=== PATIENT | female | born 1965 | race African-American/Black ===

== ENCOUNTER 2019-01-15 09:43 | Inpatient (IN) ==
--- NOTE | 2019-01-15 10:10 | EKG Report ---
Test Performed on : 01/15/2019 09:55:06 AM Test Reason : weakness Blood Pressure : / mmHG Vent. Rate : 095 BPM Atrial Rate : 095 BPM P-R Int : 158 ms QRS Dur : 084 ms QT Int : 352 ms P-R-T Axes : 041 -19 011 degrees QTc Int : 442 ms Normal sinus rhythm. Moderate voltage criteria for LVH, may be normal variant Borderline ECG When compared with ECG of 19-JUN-2017 11:55, Vent. rate has increased BY 40 BPM Unconfirmed Result
--- NOTE | 2019-01-15 10:19 | Diag Imaging Result Doc PS360 ---
EXAM: CT HEAD W/O CONTRAST HISTORY: bilateral weakness TECHNIQUE: CT head without contrast COMPARISON: None. FINDINGS: No parenchymal hemorrhage. No epidural or subdural hematoma. No subarachnoid hemorrhage. No mass identified on this noncontrasted exam. No hydrocephalus. No sinus opacification. IMPRESSION: No hemorrhage. Negative brain CT without contrast. This exam was performed using automated exposure control, adjustment of mA or kV according to patient size, and/or use of iterative reconstruction technique. Electronically signed by Yahir Alvarado 01/15/2019 10:16 AM
--- NOTE | 2019-01-15 10:29 | Diag Imaging Result Doc PS360 ---
EXAM: CHEST-PORTABLE HISTORY: weakness TECHNIQUE: Single view COMPARISON: 10/30/2015 FINDINGS: Poor inspiratory effort. The heart is not enlarged. The vessels are not distended. There are no infiltrates. No effusion identified. IMPRESSION: Negative exam. 'V Electronically signed by Yahir Alvarado 01/15/2019 10:26 AM
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
[2019-01-15 11:16] LABS: BASO# 0.01 X1000 (0.0-0.2); BASO% 0.1 % (0.0-0.8); EOS# 0.04 X1000 (0.0-0.7); EOS% 0.3 % (0.0-10.0); HEMATOCRIT 39.3 % (37.0-47.0); HEMOGLOBIN 13.8 g/dL (12.0-16.0); IMM GRAN# 0.01 X1000 (0.0-0.04); IMM GRAN% 0.1 % (0.0-0.5); LYMPH% 17.2 % (20.5-51.1); MCH 28.5 PG (27-31); MCHC 35.1 g/dL (33-37); MCV 81.2 FL (81-99); MONO# 0.99 X1000 (0.11-0.59); MONO% 7.7 % (1.7-9.3); MPV 9.2 FL (7.4-10.4); NEUT# 9.55 X1000 (1.4-6.5); NEUT% 74.6 % (42.2-75.2); PLT 348 X1000 (130-400); RBC 4.84 XMIL (4.2-5.4); RDW 12.8 % (11.5-14.5)
[2019-01-15 11:30] LABS: AGAP 13; ALBUMIN 4.5 g/dL (3.5-5.0); ALKALINE PHOSPHATASE 128 U/L (32-104); BUN 10 mg/dL (8-22); CHLORIDE 103 mmol/L (98-107); COSMO 278; CREATININE 0.6 mg/dL (0.5-0.9); ESTIMATED GFR > 60; GLUCOSE 98 mg/dL (70-104); GOT 24 U/L (10-30); GPT 20 U/L (10-36); POTASSIUM 4.3 mmol/L (3.5-5.1); SODIUM 140 mmol/L (136-145); TCO2 24 mmol/L (25-35); TOTAL PROTEIN 7.4 g/dL (6.3-8.3)
[2019-01-15 11:47] LABS: CK INDEX 1.1 (0.0-2.5); CK-MB 3.13 ng/mL (0.0-5.0)
[2019-01-15 12:37] LABS: BILIRUBIN URINE NEGATIVE (NEGATIVE); BLOOD URINE NEGATIVE (NEGATIVE); GLUCOSE URINE NEGATIVE (NEGATIVE); KETONE URINE TRACE mg/dL (NEGATIVE); LEUKOCYTES URINE 1+ (NEGATIVE); NITRITE URINE NEGATIVE (NEGATIVE); PROTEIN URINE NEGATIVE (NEGATIVE); SP GRAVITY URINE 1.005; UROBILINOGEN URINE 4 mg/dL
[2019-01-15 12:38] LABS: CLARITY CLEAR (CLEAR); COLOR YELLOW
[2019-01-15 12:42] LABS: URINE EPITHELIAL CELLS >10 /HPF (<10); URINE SOURCE CLEAN CATCH
[2019-01-15 12:53] LABS: UR AMPHETAMINES QUAL NONE DETECTED (NONE DETECT); UR BARBITUATES QUAL NONE DETECTED (NONE DETECT); UR BENZODIAZEPIN QUAL NONE DETECTED (NONE DETECT); UR CANNABINOIDS QUAL NONE DETECTED (NONE DETECT); UR COCAINE QUAL NONE DETECTED (NONE DETECT); UR METHADONE QUAL NONE DETECTED (NONE DETECT); UR METHAMPHETAMINE QUAL NONE DETECTED (NONE DETECT); UR OPIATES QUAL NONE DETECTED (NONE DETECT); UR OXYCODONE QUAL NONE DETECTED (NONE DETECT); UR PCP QUAL NONE DETECTED (NONE DETECT); UR PROPOXYPHENE QUAL NONE DETECTED (NONE DETECT); UR TCA QUAL NONE DETECTED (NONE DETECT)
[2019-01-15] MEDS ORDERED: ASPIRIN PO ONE (13:41)
[2019-01-15] MEDS ORDERED: TYLENOL PO PRN (14:25)
[2019-01-15] MEDS ORDERED: ZOFRAN IV PRN (14:25)
--- NOTE | 2019-01-15 15:29 | Diag Imaging Result Doc PS360 ---
EXAM: MRI BRAIN W/WO CONTRAST HISTORY: TIA vs CVA TECHNIQUE: MRI brain with and without contrast. Axial, sagittal, and coronal images obtained in multiple. These are followed the post contrasted axial and coronal images. COMPARISON: None. FINDINGS: No recent infarct. No significant microvascular ischemic changes. No mass or midline shift. No enhancing lesion on the post contrasted images. No hydrocephalus. No epidural or subdural fluid collection. Normal orbits. No sinus opacification. IMPRESSION: No recent infarct or microvascular ischemic changes Electronically signed by Yahir Alvarado 01/15/2019 3:26 PM
--- NOTE | 2019-01-15 15:58 | Extremity Venous Study ---
EXAM: Carotid Ultrasound HISTORY: TIA vs CVA TECHNIQUE: Carotid Doppler ultrasound COMPARISON: None. FINDINGS: Right: No occlusion or stenosis in the common carotid artery. The peak systolic velocity in the internal carotid artery is 59 cm/s. No stenosis. The ICA/CC ratio 0.72. Antegrade flow in the vertebral artery. Left: No occlusion or stenosis within the common carotid artery. There is a small amount of plaque in the bulb. Peak systolic velocity is 56 cm/s. The ICA/CC ratio 0.57. Antegrade flow in the vertebral artery. IMPRESSION: Mild stenosis in the left bulb of less than 40%. Electronically signed by Yahir Alvarado 01/15/2019 3:56 PM
--- NOTE | 2019-01-15 17:17 | HISTORY AND PHYSICAL ---
PRIMARY CARE PROVIDER: DENNISE Mcclelland. ADMISSION DIAGNOSES: Weakness, unable to walk or move bilateral arms, headache, nausea vomiting that began at work today and progressively worsened. HISTORY OF PRESENTING ILLNESS: This is a 53-year-old female who presents to [facility] ER after she was at work and states that she began not feeling well, went to the bathroom and threw up several times, began having a headache, blurred vision, dizziness, was unable to move her bilateral arms, is unable to move her right leg. Is able to wiggle her toes on her left side. Workup in the emergency room showed a blood pressure of 114/90 on arrival. Her laboratory data is fairly unremarkable. Urinalysis was negative. Urine drug screen was negative. CT of the head showed no hemorrhage and a negative brain CT without contrast. The patient is tearful and we will admit for further evaluation and treatment. PAST MEDICAL HISTORY: Of a TIA, hypertension, asthma, depression, sleep apnea and anxiety. PAST SURGICAL HISTORY: Cholecystectomy and gastric bypass. FAMILY HISTORY: Reviewed and noncontributory. SOCIAL HISTORY: She currently lives with family. Denies any tobacco, alcohol or illicit drug use. ALLERGIES: To latex, penicillin and sulfa drugs. HOME MEDICATIONS: A current list needs to be obtained, reconciled, reviewed and restarted as appropriate. Will place an order for nursing to update and confirm home medications. LABORATORY DATA: Showed a white blood cell count of 12.80, hemoglobin 13.8, hematocrit 39.3, platelets of 348,000. Sodium 140, potassium 4.3, chloride 103, CO2 24, BUN of 10, creatinine 0.6, glucose 98, creatine kinase of 285, CK-MB of 3.13. Troponin was less than 0.010. ProBNP of 21. TSH of 1.02. Urinalysis was negative and it did have greater than 10 epithelial cells. Urine drug screen showed none detected. CT of the head showed no hemorrhage and negative brain CT without contrast. Chest x-ray showed negative exam. REVIEW OF SYSTEMS: She denied any fever, chills. She was positive for blurred vision, dizziness, headache, generalized weakness of bilateral upper arms and right lower leg and weakness in her left leg but is able to move her toes on her left foot. Denied any chest pain, coughing, shortness of breath, denied any abdominal pain, constipation, diarrhea. Was positive for nausea, vomiting and no burning or hurting with urination. PHYSICAL EXAMINATION: On arrival she had a pulse of 95, respirations 19, blood pressure 114/90, saturating 99% on room air. GENERAL: This is a 53-year-old female who is lying in the bed and answers questions appropriately. HEENT: Normocephalic, atraumatic. Normal ENT inspection. Oropharynx and nares are clear. Pupils are equal, round, reactive to light and accommodation. Extraocular movements are intact. NECK: Normal inspection, normal range of motion. LUNGS: Clear to auscultation bilaterally with equal lung expansion and chest wall movement. HEART: Regular rate and rhythm. No murmurs, rubs, or gallops. ABDOMEN: Soft, nontender, nondistended. Bowel sounds are present x4 quadrants. MUSCULOSKELETAL: Normal inspection. Is unable to provide any strength in all 4 extremities. States she is trying but cannot move anything but her toes on her left foot. NEUROLOGICAL: Unable to assess patient's motor strength. She is able to move her toes on her left foot and a little bit of movement in her left index finger. No movement in her right lower extremity or right arm. No facial drooping, slurred speech noted. Patient does state she has a headache and blurred vision. ASSESSMENT: 1. Transient ischemic attack versus cerebrovascular accident. 2. Generalized weakness. 3. Nausea, vomiting. 4. Anxiety history of. PLAN: She will be admitted to the medical unit. We are going to obtain a MRI of the brain with and without contrast, carotid ultrasound, hold NPO, place on telemetry, will do a bedside swallowing evaluation and if needed will obtain speech at that time. We will consult physical therapy, update and confirm home medications. Place on Zofran 4 mg IV q.4 hours p.r.n., Tylenol [address] on an aspirin 325 mg daily, 1st dose will be given in the emergency room. We will review all of these test results to make a more definitive diagnosis and further orders after seen by attending. Dictated by DENNISE Lowe for Kiko Fritz MD cc: DENNISE cMclelland MD
[2019-01-15] MEDS ORDERED: VENTOLIN HFA INH PRN (23:12)
[2019-01-15] MEDS ORDERED: MAXALT PO PRN (23:13)
[2019-01-15] MEDS ORDERED: TORADOL IV ONE (23:14)
[2019-01-15] MEDS ORDERED: NS 1,000 ML IV SCH (23:15)
[2019-01-16] MEDS: PRILOSEC PO SCH (06:25)
[2019-01-16] MEDS: LOVENOX SUBQ SCH (06:26)
[2019-01-16] MEDS ORDERED: MAXALT MLT PO PRN (06:41)
[2019-01-16 08:04] LABS: BASO# 0.01 X1000 (0.0-0.2); BASO% 0.1 % (0.0-0.8); EOS% 1.3 % (0.0-10.0); HEMATOCRIT 36.2 % (37.0-47.0); HEMOGLOBIN 12.3 g/dL (12.0-16.0); IMM GRAN# 0.02 X1000 (0.0-0.04); IMM GRAN% 0.3 % (0.0-0.5); LYMPH# 2.37 X1000 (1.2-3.4); LYMPH% 30.5 % (20.5-51.1); MCH 28.4 PG (27-31); MCV 83.6 FL (81-99); MONO# 0.61 X1000 (0.11-0.59); MONO% 7.9 % (1.7-9.3); MPV 9.5 FL (7.4-10.4); NEUT# 4.66 X1000 (1.4-6.5); NEUT% 59.9 % (42.2-75.2); PLT 268 X1000 (130-400); RBC 4.33 XMIL (4.2-5.4); RDW 12.8 % (11.5-14.5); WBC 7.77 X1000 (4.8-10.8)
[2019-01-16 08:28] LABS: PHOSPHORUS 3.3 mg/dL (2.7-4.5)
[2019-01-16 08:36] LABS: AGAP 11; BUN 13 mg/dL (8-22); CALCIUM 8.3 mg/dL (8.8-10.2); CHLORIDE 107 mmol/L (98-107); COSMO 282; CREATININE 0.5 mg/dL (0.5-0.9); ESTIMATED GFR > 60; GLUCOSE 106 mg/dL (70-104); POTASSIUM 4.1 mmol/L (3.5-5.1); SODIUM 141 mmol/L (136-145); TCO2 23 mmol/L (25-35)
[2019-01-16] MEDS ORDERED: ASPIRIN PO SCH (09:00)
[2019-01-16] MEDS: TORADOL IV PRN (12:46)
[2019-01-16] MEDS ORDERED: FIORICET PO PRN (16:56)
[2019-01-16] MEDS ORDERED: FIORICET PO ONE (16:56)
--- NOTE | 2019-01-16 19:27 | Diag Imaging Result Doc PS360 ---
EXAM: CERVICAL SPINE COMPLETE HISTORY: neck pain/weakness of ue TECHNIQUE: AP and lateral with obliques, seven views COMPARISON: None. FINDINGS: There is good alignment to the cervical spine. Moderate degenerative changes most pronounced at C5-6. No precervical soft tissue swelling. No subluxation. IMPRESSION: Moderate degenerative changes at C5-6 Electronically signed by Yahir Alvarado 01/16/2019 7:25 PM
[2019-01-16] MEDS: TOPAMAX PO SCH (20:06)
--- NOTE | 2019-01-16 23:44 | PROGRESS NOTE ---
DATE: 01/16/2019 SUBJECTIVE: She has no major complaints. now I said she has no major complaints that is not accurate. She complains of headache. She is still weak in her arms, although a little bit better on the left than the right. She has not gotten up yet OBJECTIVE: Blood pressure is 142/82, heart rate of 85, respiratory rate of 18, temperature is 98Cardiovascular: Regular rate and rhythm. Pulmonary: Bilateral breath sounds clear to auscultation. GI: Soft, nontender, nondistended. Bowel sounds are positive. LABORATORY DATA: White count 7, hemoglobin and hematocrit is 12 and 36. Her basic was normal. Her TSH is normal. She may have some proximal muscle weakness, so polymyositis may be an option although I do not really feel like she is quite the right age for that but we will check sedimentation rate and CHHAYA and see if anything is going on there so we will continue to follow. Her neuro exam is nonfocal she has equal yard hostler strength. She refuses to get up because she says she cannot get up but granted she was on strict bedrest so we are going to work on trying to get her up and about. PROBLEM LIST: 1. Neuropathy, polyneuropathy, is certainly possible is a TIA but this may also just be a complicated migraine. We are going to try to get her on some medications for that. She is kind of not cooperating completely with that but it is okay but we will try to treat her symptomatically see how she does. Work on getting her up. 2. Anxiety which I think may be contributing somewhat to her current process. We will check plain films of her neck just to make sure there is no cervical pathology. We will check sedimentation rate, CRP, CHHAYA and see how she is doing there, may check a B12 and folate levels I do not think I have done that before, her LDL is actually pretty good. DISPOSITION: I think once we can get her up and her headaches under control hopefully get her home. I am a little concerned there may be some secondary gain issues like is possibly malingering or conversion disorder is kind of hard to say but will see how she does. Disposition again as above. cc: Kiko Fritz MD
[2019-01-17] MEDS: TORADOL IV PRN ×2 (00:17→08:47)
[2019-01-17] MEDS: NORCO-7.5 PO PRN ×3 (00:17→17:13)
[2019-01-17] MEDS: PRILOSEC PO SCH (06:29)
[2019-01-17] MEDS: LOVENOX SUBQ SCH (06:29)
[2019-01-17 07:32] LABS: BASO# 0.01 X1000 (0.0-0.2); BASO% 0.2 % (0.0-0.8); EOS% 1.6 % (0.0-10.0); HEMATOCRIT 36.1 % (37.0-47.0); HEMOGLOBIN 12.3 g/dL (12.0-16.0); IMM GRAN# 0.01 X1000 (0.0-0.04); IMM GRAN% 0.2 % (0.0-0.5); LYMPH# 2.46 X1000 (1.2-3.4); MCH 28.3 PG (27-31); MCHC 34.1 g/dL (33-37); MCV 83.2 FL (81-99); MONO# 0.54 X1000 (0.11-0.59); MONO% 8.6 % (1.7-9.3); MPV 9.3 FL (7.4-10.4); NEUT# 3.18 X1000 (1.4-6.5); NEUT% 50.4 % (42.2-75.2); PLT 257 X1000 (130-400); RBC 4.34 XMIL (4.2-5.4); RDW 12.5 % (11.5-14.5)
[2019-01-17 07:54] LABS: AGAP 10; BUN 14 mg/dL (8-22); CALCIUM 8.2 mg/dL (8.8-10.2); CHLORIDE 104 mmol/L (98-107); COSMO 278; CREATININE 0.5 mg/dL (0.5-0.9); ESTIMATED GFR > 60; GLUCOSE 91 mg/dL (70-104); POTASSIUM 4.3 mmol/L (3.5-5.1); SODIUM 139 mmol/L (136-145); TCO2 25 mmol/L (25-35)
[2019-01-17] MEDS: TOPAMAX PO SCH (08:47)
[2019-01-17] MEDS ORDERED: ASPIRIN EC PO SCH (09:00)
[2019-01-17 15:30] VITALS: BP 140/84
--- NOTE | 2019-01-17 20:53 | DISCHARGE SUMMARY ---
ADMISSION DATE: 01/15/2019 DISCHARGE DATE: 01/17/2019 DISCHARGE DIAGNOSIS: Unclear paresthesias, most likely a complicated migraine. HOSPITAL COURSE: Today, she is doing okay. She can get up. 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 She is still weak. She has bilateral reflexes, a bit diminished on the left leg but brisk in both upper extremities, normal in right extremity. Her cervical spine films showed some degenerative changes in C5-C6, which I think is not unexpected. In any case, she is improved. Headache has improved. We are going to discharge her on headache medication, migraine medication, Maxalt, Topamax, Lodine, Fioricet p.r.n., and she needs followup with Neurology which will need to be set up by her primary care doctor and follow up with possibly for sleep apnea evaluation as well. cc: Kiko Fritz MD MTDD
--- NOTE | 2019-01-18 09:29 | DISCHARGE SUMMARY ---
ADMISSION DATE: 01/15/2019 DISCHARGE DATE: 01/17/2019 PRIMARY CARE PHYSICIAN: DENNISE Mcclelland. ADMISSION DIAGNOSES: 1. Transient ischemic attack versus cerebrovascular accident. 2. Generalized weakness. 3. Nausea, vomiting. 4. Anxiety, history of. DISCHARGE DIAGNOSES: 1. Complicated migraine with neuropathy and polyneuropathy, ruled out for a TIA and CVA. 2. Anxiety. 3. Generalized weakness, improved. 4. Nausea and vomiting, resolved. 5. Anxiety, history of. SUMMARY OF FINDINGS: This is a 53-year-old female who initially presented to [facility] from work, states that she began not feeling well, went to the bathroom and threw up several times. Began having a headache, blurred vision, dizziness, was unable to move her bilateral arms at all, was unable to move her right leg and could only wiggle the toe on her left side. No facial drooping noted. Her workup in the emergency room was fairly unremarkable. Blood pressure was normal at 114/90. Urine drug screen was negative. CT of the head showed no hemorrhage and a negative brain CT without contrast. She was admitted. We did a brain MRI and it showed no recent infarct or microvascular ischemic changes. Upon talking with the patient, it appears that these symptoms are more of a complicated migraine. She began being able to move her arms and legs and has even gotten up and walked to the bathroom since admission. We did do a carotid Doppler that showed mild stenosis in the left bulb of less than 40%. We did a cervical spine x-ray that showed moderate degenerative changes at C5 and 6 and physical therapy was consulted. They did feel she remained a little bit weak and may benefit from a walker short term, so we have requested that, and she will be discharged home with that. She is going to need a neurological consult from her primary care physician, maybe even a sleep study for possible sleep apnea. States that she does not sleep well, does get these frequent headaches. We started her on some new medication of Topamax 25 mg p.o. daily. We placed her on Maxalt 10 mg p.o. p.r.n., Fioricet q.4 hours p.r.n. Her inflammatory workup was all negative. CRP was mildly up at 6.25. Vitamin B12 was 484, folate 12. TSH was 1.26. So it is now felt that she could safely be discharged home. DISCHARGE MEDICATIONS: Ventolin inhaler 2 puffs q.6 hours p.r.n., prescription for Maxalt 10 mg p.o. p.r.n., Topamax 25 mg p.o. daily #30 with 1 refill, albuterol nebulizer q.6 hours p.r.n., Ecotrin 325 mg p.o. b.i.d., Lodine 300 mg p.o. b.i.d. #60 with no refills, and Fioricet 1 q.4 hours p.r.n. #20 with 1 refill. FOLLOW-UP: She needs to follow up with her primary care physician, DENNISE Mcclelland next week. Again, she may need a neurological consult on an outpatient basis, to be determined by her primary care physician. TIME SPENT: 35 minutes. Dictated by DENNISE Lowe for Kiko Fritz MD cc: DENNISE Lowe MD Johnna Langford, CRNP
== END 2019-01-17 17:23 | disposition home or self-care (01) | DRG 103 ==
LOC: P.ED 09:43 → P.MEDSURG 09:43 → OBSVTOIN 14:09
PROVIDERS: ATTEND Internal Medicine
CPT/HCPCS: 51701; 70450; 70553; 71010; 71045; 72050; 80048; 80053; 80061; 80104; 80301; 80305; 81001; 82550; 82553; 82607; 82746; 82948; 83721; 83735; 83880; 84100; 84443; 84484; 85025; 85651; 86038; 86039; 86140; 93005; 93306; 93880; 96372; 96374; 96376; 97163; 99285; A9270; A9579; G0378; G0431; G0434; G0477; J1650; J1885; J7030; P9612; XXXXX